=== PATIENT | male | born 1990 | race Caucasian/White ===

== ENCOUNTER 2018-03-25 15:14 | Emergency (ER) | payer OTHER ==
[~2018-03-25] VITALS: Ht 185.4 cm; Wt 82.0 kg
[2018-03-25] MEDS ORDERED: ibuprofen tablet 400 MG TABLET PO ONE (15:20)
[2018-03-25 15:21] VITALS: BP 178/82
[2018-03-25] MEDS ORDERED: IBUP-1984 PO (16:43)
== END 2018-03-25 17:24 | disposition home or self-care (01) ==
LOC: ER 15:15
DX: S93.402A Sprain of unspecified ligament of left ankle, initial encounter (principal); Z79.899 Other long term (current) drug therapy; X50.1XXA Overexertion from prolonged static or awkward postures, initial encounter; Y93.89 Activity, other specified; Y92.89 Other specified places as the place of occurrence of the external cause; Y99.8 Other external cause status
CPT/HCPCS: 29515; 73610; 73630; 99283

== ENCOUNTER 2020-03-24 12:09 | Emergency (ER) | payer BC, OTHER ==
[~2020-03-24] VITALS: Ht 185.4 cm; Wt 81.8 kg
[2020-03-24 13:20] VITALS: BP 124/77
== END 2020-03-24 13:27 | disposition home or self-care (01) ==
LOC: ER 12:10
DX: M79.10 Myalgia, unspecified site (principal); R50.9 Fever, unspecified; F12.10 Cannabis abuse, uncomplicated
CPT/HCPCS: 36415; 99282